=== PATIENT | male | born 1990 | race Caucasian/White ===

== ENCOUNTER 2018-10-03 22:52 | Inpatient (IN) | payer OTHER ==
[2018-10-04 01:14] LABS: Barbiturates Urine Screen None Detected (None Detect); Benzodiazepine Urine Screen None Detected (None Detect); Urine Cannabinoids Screen None Detected (None Detect)
--- NOTE | 2018-10-04 01:37 | ED ---
Psychiatric Complaint - HPI Summary HPI Summary: Patient is a 27-year-old male presenting to the ED with a CC of "weird thoughts and actions" over the last few days. He also states he has not slept any more than 3 hours in the past 2-3 days, however does not feel tired. Patient does endorse a depression history, but denies any anxiety. He states he had turned in a paper to his professor and the professor became concerned. The professor stated he may need to have someone to talk to. The patient states this was due to his anxiety over wrestling with trying to to his friends he did not like their ideas and must come out wrong on paper. He also is stating throughout the day he had "strange thoughts" and states he had fleeting thoughts of "Am I God?" He follows this with, "obviously I know I am not, and I am feeling much better after I am sitting here realizing all these thoughts are just strange and probably d/t lack of sleep." He states he exercises regularly and eats healthy. He is to be on ADD medications, but was able to get off these with diet and exercise. He denies any SI/HI. He denies any self-harm. - History Of Current Complaint Chief Complaint: EDMentalHealth Time Seen by Provider: 10/04/18 00:17 Hx Obtained From: Patient Onset/Duration: Sudden Onset Timing: Constant Severity Initially: Moderate Severity Currently: Moderate Character: Manic, Frustrated Aggravating Factor(s): Nothing Alleviating Factor(s): Nothing Associated Signs And Symptoms: Positive: Negative Related History: Positive For: Prior Psychiatric Issues - depression - Risk Factor(s) Completed Suicide Risk Factors: Male, White Armenian - Allergies/Home Medications Allergies/Adverse Reactions: Allergies Allergy/AdvReac Type Severity Reaction Status Date / Time No Known Allergies Allergy Verified 10/03/18 23:02 Home Medications: Home Medications Methylphenidate HCl [Methylphenidate ER] 27 mg PO DAILY 10/04/18 [History Confirmed 10/04/18] PMH/Surg Hx/FS Hx/Imm Hx Previously Healthy: Yes - Immunization History Hx Pertussis Vaccination: No Immunizations Up to Date: Yes Infectious Disease History: Yes Infectious Disease History: Denies: Traveled Outside the [place] in Last 30 Days - Social History 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, 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 Lives: Alone Alcohol Use: Occasionally Hx Substance Use: No Substance Use Type: Reports: None Hx Tobacco Use: No Smoking Status (MU): Never Smoked Tobacco Review of Systems Constitutional: Negative Negative: Fever, Chills, Fatigue, Skin Diaphoresis Negative: Palpitations, Chest Pain Negative: Shortness Of Breath, Cough Genitourinary: Negative Positive: no symptoms reported, see HPI Negative: Arthralgia, Myalgia Skin: Negative Positive: Other - insomnia All Other Systems Reviewed And Are Negative: Yes Physical Exam Triage Information Reviewed: Yes Vital Signs On Initial Exam: Initial Vitals Temp Pulse Resp BP Pulse Ox 98.5 F 92 16 145/89 98 10/03/18 22:54 10/03/18 22:54 10/03/18 22:54 10/03/18 22:54 10/03/18 22:54 Vital Signs Reviewed: Yes Appearance: Positive: Well-Appearing, Well-Nourished Skin: Positive: Skin Color Reflects Adequate Perfusion Head/Face: Positive: Normal Head/Face Inspection Eyes: Positive: EOMI, CARROLL, Conjunctiva Clear Neck: Positive: Nontender, No Lymphadenopathy Respiratory/Lung Sounds: Positive: Clear to Auscultation, Breath Sounds Present Cardiovascular: Positive: RRR, Pulses are Symmetrical in both Upper and Lower Extremities Musculoskeletal: Positive: Strength/ROM Intact Neurological: Positive: Sensory/Motor Intact, Alert, Oriented to Person Place, Time, Speech Normal Psychiatric: Positive: Affect/Mood Appropriate AVPU Assessment: Alert Diagnostics - Vital Signs Vital Signs Temp Pulse Resp BP Pulse Ox 10/03/18 22:54 98.5 F 92 16 145/89 98 - Laboratory Lab Results: Lab Results 10/04/18 Range/Units 00:15 Urine Opiates Screen None detected (None Detect) Ur Barbiturates Screen None detected (None Detect) Ur Phencyclidine Scrn None detected (None Detect) Ur Amphetamines Screen None detected (None Detect) U Benzodiazepines Scrn None detected (None Detect) Urine Cocaine Screen None detected (None Detect) U Cannabinoids Screen None detected (None Detect) Lab Statement: Any lab studies that have been ordered have been reviewed, and results considered in the medical decision making process. Course/Dx - Course Course Of Treatment: During the course treatment from the patient is evaluated for grossly disorganized thoughts as well as some social functioning issues, with no obvious hallucinations or delusions. There is no evidence of disorganized speech. No evidence of current depression, SI, HI or anxiety. However there appears to be a social dysfunction component at this time. He is cleared for MHU without labs obtained. He appears well and in good spirits. He is signed out to Dr. Paris at 2:30a pending mental health evalution. - Differential Dx/Clinical Impression Differential Diagnosis/HQI/PQRI: Positive: Anxiety, Bipolar Disorder, Schizophrenia, Other - insomnia Provider Diagnosis: Insomnia Discharge - Sign-Out/Discharge Documenting (check all that apply): Sign-Out Patient Signing out patient TO: Homa Paris - Discharge Plan Condition: Stable Referrals: No Primary Care Phys,NOPCP [Primary Care Provider] - - Billing Disposition and Condition Condition: STABLE
[2018-10-04] MEDS ORDERED: LORazepam TAB(*) 1 MG PO ONE (03:37)
--- NOTE | 2018-10-04 06:40 | ED ---
Progress - Progress Note Progress Note: This patient was signed out from EVELIA Triplett to Dr. Paris, pending dispo, awaiting MHE. MHE done at [address] Bhardwaj. The patient will be involuntarily admitted with dx of acute juani. - Consult/PCP Time Called: 00:00 Course/Dx - Course Course Of Treatment: During the course treatment from the patient is evaluated for grossly disorganized thoughts as well as some social functioning issues, with no obvious hallucinations or delusions. There is no evidence of disorganized speech. No evidence of current depression, SI, HI or anxiety. However there appears to be a social dysfunction component at this time. He is cleared for MHU without labs obtained. He appears well and in good spirits. He is signed out to Dr. Paris at 2:30a pending mental health evalution. - Diagnoses Provider Diagnoses: Juani Discharge - Sign-Out/Discharge Documenting (check all that apply): Patient Departure - admit All imaging exams completed and their final reports reviewed: No Studies - Discharge Plan Condition: Stable [place] [place] Disposition and Condition Condition: STABLE [place] [facility] [place] Attestation Statements Document Initiated by Scribe: Yes Documenting Scribe: Ollie Bobby Provider For Whom Randy is Documenting (Include Credential): Homa Paris MD Scribe Attestation: Ollie Carpenter, scribed for Homa Paris MD on 10/05/18 at 0624. Scribe Documentation Reviewed: Yes Provider Attestation: The documentation as recorded by the Ollie altamirano accurately reflects the service I personally performed and the decisions made by , Homa Paris MD Status of Scribe Document: Viewed
[2018-10-04] MEDS ORDERED: Acetaminophen TAB* 325 MG PO PRN (13:57)
[2018-10-04] MEDS ORDERED: Al Hydrox/Mg Hydrox/Simet LIQ* 30 ML UDC PO PRN (13:57)
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
[2018-10-05] MEDS: Vitamin THERAPEUTIC TAB PO SCH (08:33)
--- NOTE | 2018-10-05 11:45 | PN ---
MHU: Group Therapy Note - Service Type Service Type: [id number] Group Psychotherapy - Cognitive Behavioral Group Therapy ( CBT):Patient was attentive and participatory in CBT programming this morning, and remained in good behavioral control. Patient expressed positive insights regarding relevant treatment interventions and goals.
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
[2018-10-05] MEDS ORDERED: Divalproex ER TAB(*) 500 MG PO SCH (21:00)
[2018-10-06 08:19] LABS: HDL Cholesterol 79.3 mg/dL
[2018-10-06] MEDS: Vitamin THERAPEUTIC TAB PO SCH (11:25)
[2018-10-06] MEDS ORDERED: Divalproex DR TAB(*) 500 MG PO ONE (12:04)
[2018-10-06] MEDS: diPHENhydraMINE PO* 50 MG PO PRN (12:26)
--- NOTE | 2018-10-06 14:06 | PN ---
Subjective - Subjective Date of Service: 10/06/18 Service Type: [id number] [facility] care 15 min low complexity Subjective: Patient was seen by self, initial evaluation was reviewed, discussed with treatment team, chart was reviewed. Spoke with father after patient agreed to release information. Patient took his medications yesterday, no reported side effects to any medications. Patient still in manic phase gets easily distractable and is ambivalent about his treatment and medications. Patient continues to be disorganized with flight of ideas. Patient mood was anxious and euphoric with racing thoughts with minimal improvement. Patient has been reporting no suicidal or homicidal ideation. No psychotic symptoms of hallucinations but do have some paranoid ideation and grandiosity. Objective - Appearance Appearance: Healthy Appearing Dysmorphic Features: No Hygiene: Normal Grooming: Fairly Well Kept - Behavior Psychomotor Activities: Abnormal-Increased Exhibits Abnormal Movement: No - Attitude and Relatedness Attitude and Relatedness: Superficially Cooperative Eye Contact: Poor - Speech Quality: Pressured Latencies: Short Quantity: Copious - Mood Patient's Decription of Mood: "Fine" - Affect Observed Affect: Good Affect Consistent with: Euphoria - Thought Process Patient's Thought Process: Tangential, Filght of Ideas Thought Content: Yes Paranoid Ideation - asking staff to eat and test food before he eats, No Passive Wish, No Suicidal Planning, No Homicidal Ideation - Sensorium Experiencing Hallucinations: No, Sensorium is Clear Type of Hallucinations: Visual: No, Auditory: No, Command: No - Level of Consciousness Level of Consciousness: Alert Orientation: Yes Intact, Yes Orientated to Time, Yes Orientated to Place, Yes Orientated to Person - Impulse Control Impulse Control: Poor - Insight and Judgement Insight and Judgement: Poor - Medication Management Medication Management Adherence: Yes Assessment - Assessment Merits Inpatient Hospitalization: For Immediate Safety, For Stabilization, For Discharge Planning Inpatient DSM-V Dx: F31.2 Clinical Impression: 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 He was admitted on emergency status for treatment of manic-like symptoms. Medical history is unremarkable. He denies recent substance abuse. He is not aware of any family history of psychiatric illnesses or completed suicide. He described a pressure to meet deadline for exam as a precipitant for his current symptoms. He has remote history of mental health evaluation because of depressed mood and suicidal ideation in the context of a setback. [facility] [place]: Problem List - Patient Problems (1) Bipolar 1 disorder Current Visit: Yes Status: Acute Code(s): F31.9 - BIPOLAR DISORDER, UNSPECIFIED SNOMED Code(s): 870911197 Plan - Plan Treatment Plan: Name: MARGARET CARROLL Birthdate: 1990 [id number] - Patient continues to be hospitalized due to manic episode. - Patient's medications were discussed after multiple attempt of psychoeducation and patient informed consent. Patient was given one dose of Depakote 500 mg and his Depakote ER was increased to 750 mg PO QHS with plan to adjust as needed and tolerated. - Patient will be monitored for improvement and side effects. Risk and benefits were discussed. - Patient was encouraged to continue his participation in the milieu, group and individual therapy. Medications: Current Medications Acetaminophen (Tylenol Tab*) 650 mg PO Q4H PRN PRN Reason: PAIN or TEMP > 101 F Al Hydrox/Mg Hydrox/Simethicone (Maalox Plus*) 30 ml PO Q4H PRN PRN Reason: INDIGESTION Diphenhydramine HCl (Benadryl Po*) 50 mg PO Q6H PRN PRN Reason: anxiety/sleep Last Admin: 10/06/18 12:26 Dose: 50 mg Divalproex Sodium (Depakote Er Tab(*)) 750 mg PO BEDTIME [facility] Multivitamins (Theragran Tab*) 1 tab PO DAILY [place] Last Admin: 10/06/18 11:25 Dose: Not Given
[2018-10-06] MEDS ORDERED: Divalproex ER TAB(*) 250 MG PO SCH (21:00)
[2018-10-07] MEDS: Vitamin THERAPEUTIC TAB PO SCH (10:08)
--- NOTE | 2018-10-07 11:37 | PN ---
MHU: Group Therapy Note - Service Type Service Type: [id number] Group Psychotherapy - Cognitive Behavioral Group Therapy ( CBT):Patient presented in CBT programming as disorganized and disruptive in discussion and needed repeated redirection to attend to presented materials.
--- NOTE | 2018-10-07 12:19 | PN ---
Subjective - Subjective Date of Service: 10/07/18 Service Type: [id number] [facility] care 15 min low complexity Subjective: Patient was seen by self, discussed with treatment team, chart was reviewed. Patient has been reporting compliance with his medications, no reported side effects. Patient still in manic phase with limited improvement gets easily distractable and is ambivalent about his treatment and medications but agreed to medication adjustment. Patient continues to be disorganized with flight of ideas with some improvement than before. Patient mood was anxious and euphoric with racing thoughts with some improvement. Patient has been reporting no suicidal or homicidal ideation. No psychotic symptoms of hallucinations but some paranoid ideation and grandiosity. Objective - Appearance Appearance: Healthy Appearing Dysmorphic Features: No Hygiene: Normal Grooming: Fairly Well Kept - Behavior Psychomotor Activities: Abnormal-Increased Exhibits Abnormal Movement: No - Attitude and Relatedness Attitude and Relatedness: Superficially Cooperative Eye Contact: Poor - Speech Quality: Pressured - less Latencies: Short - improved than before Quantity: Copious - Mood Patient's Decription of Mood: "Great" - Affect Observed Affect: Euphoric Affect Consistent with: Euphoria - Thought Process Patient's Thought Process: Disorganized - less, Circumstantial Thought Content: Yes Paranoid Ideation - less, No Passive Wish, No Suicidal Planning, No Homicidal Ideation - Sensorium Experiencing Hallucinations: No, Sensorium is Clear Type of Hallucinations: Visual: No, Auditory: No, Command: No - Level of Consciousness Level of Consciousness: Alert Orientation: Yes Intact, Yes Orientated to Time, Yes Orientated to Place, Yes Orientated to Person - Impulse Control Impulse Control: Poor - Insight and Judgement Insight and Judgement: Poor - Group Participation Particating in Group Activities: Yes - Medication Management Medication Management Adherence: Yes Assessment - Assessment Merits Inpatient Hospitalization: For Immediate Safety, For Stabilization, For Discharge Planning Inpatient DSM-V Dx: F31.2 Clinical Impression: 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 He was admitted on emergency status for treatment of manic-like symptoms. Medical history is unremarkable. He denies recent substance abuse. He is not aware of any family history of psychiatric illnesses or completed suicide. He described a pressure to meet deadline for exam as a precipitant for his current symptoms. He has remote history of mental health evaluation because of depressed mood and suicidal ideation in the context of a setback. MHU: Problem List - Patient Problems (1) Bipolar 1 disorder Current Visit: Yes Status: Acute Code(s): F31.9 - BIPOLAR DISORDER, UNSPECIFIED SNOMED Code(s): 893030864 Plan - Plan Treatment Plan: Name: MARGARET CARROLL Birthdate: 1990 [id number] - Patient continues to be hospitalized due to manic episode. - Patient's medications were adjusted with increment in Depakote ER to 1250 mg QHS with plan to adjust as needed and tolerated. - Patient will be monitored for improvement and side effects. Risk and benefits were discussed. - Patient was encouraged to continue his participation in the milieu, group and individual therapy. Medications: Current Medications Acetaminophen (Tylenol Tab*) 650 mg PO Q4H PRN PRN Reason: PAIN or TEMP > 101 F Al Hydrox/Mg Hydrox/Simethicone (Maalox Plus*) 30 ml PO Q4H PRN PRN Reason: INDIGESTION Diphenhydramine HCl (Benadryl Po*) 50 mg PO Q6H PRN PRN Reason: anxiety/sleep Last Admin: 10/06/18 12:26 Dose: 50 mg Multivitamins (Theragran Tab*) 1 tab PO DAILY [place] Last Admin: 10/07/18 10:08 Dose: Not Given
[2018-10-07] MEDS ORDERED: Divalproex ER TAB(*) 250 MG PO SCH ×2 (21:00)
[2018-10-08] MEDS: Vitamin THERAPEUTIC TAB PO SCH (10:59)
--- NOTE | 2018-10-08 12:54 | PN ---
Subjective - Subjective Date of Service: 10/08/18 Service Type: [id number] [facility] care 15 min low complexity Subjective: Patient was seen by self, discussed with treatment team, chart was reviewed. Patient has been reporting compliance with his medications, no reported side effects. Patient with some improvement in manic phase and is cooperative with his medications. Patient continues to be disorganized with flight of ideas and paranoid thinking process. Patient mood was anxious and euphoric with less racing thoughts and limited improvement. Patient has been reporting no suicidal or homicidal ideation. No psychotic symptoms of hallucinations but continue to have paranoid ideation and grandiosity. Objective - Appearance Appearance: Healthy Appearing Dysmorphic Features: No Hygiene: Normal Grooming: Fairly Well Kept - Behavior Psychomotor Activities: Normal Exhibits Abnormal Movement: No - Attitude and Relatedness Attitude and Relatedness: Cooperative Eye Contact: Fair - Speech Quality: Unpressured Latencies: Normal Quantity: Copious - Mood Patient's Decription of Mood: "Good" - Affect Observed Affect: Labile Affect Consistent with: Euphoria - Thought Process Patient's Thought Process: Tangential, Circumstantial Thought Content: Yes Paranoid Ideation, No Passive Wish, No Suicidal Planning, No Homicidal Ideation - Sensorium Experiencing Hallucinations: No, Sensorium is Clear Type of Hallucinations: Visual: No, Auditory: No, Command: No - Level of Consciousness Level of Consciousness: Alert Orientation: Yes Intact, Yes Orientated to Time, Yes Orientated to Place, Yes Orientated to Person - Impulse Control Impulse Control: Poor - Insight and Judgement Insight and Judgement: Poor - Medication Management Medication Management Adherence: Yes Assessment - Assessment Merits Inpatient Hospitalization: For Immediate Safety, For Stabilization, For Discharge Planning Inpatient DSM-V Dx: F31.2 Clinical Impression: 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 He was admitted on emergency status for treatment of manic-like symptoms. Medical history is unremarkable. He denies recent substance abuse. He is not aware of any family history of psychiatric illnesses or completed suicide. He described a pressure to meet deadline for exam as a precipitant for his current symptoms. He has remote history of mental health evaluation because of depressed mood and suicidal ideation in the context of a setback. MHU: Problem List - Patient Problems (1) Bipolar 1 disorder Current Visit: Yes Status: Acute Code(s): F31.9 - BIPOLAR DISORDER, UNSPECIFIED SNOMED Code(s): 114752163 Plan - Plan Treatment Plan: Name: MARGARET CARROLL Birthdate: 1990 [id number] - Patient continues to be hospitalized due to manic episode. - Patient's medications were adjusted with increment in Depakote ER to 1500 mg QHS with plan to adjust as needed and tolerated. Patient was also started on Risperidone 0.5 mg PO BID to help with paranoid thinking process. - Patient will be monitored for improvement and side effects. Risk and benefits were discussed. - Patient was encouraged to continue his participation in the milieu, group and individual therapy. Medications: Current Medications Acetaminophen (Tylenol Tab*) 650 mg PO Q4H PRN PRN Reason: PAIN or TEMP > 101 F Al Hydrox/Mg Hydrox/Simethicone (Maalox Plus*) 30 ml PO Q4H PRN PRN Reason: INDIGESTION Diphenhydramine HCl (Benadryl Po*) 50 mg PO Q6H PRN PRN Reason: anxiety/sleep Last Admin: 10/06/18 12:26 Dose: 50 mg Divalproex Sodium (Depakote Er Tab(*)) 1,500 mg PO BEDTIME [place] Multivitamins (Theragran Tab*) 1 tab PO DAILY [place] Last Admin: 10/08/18 10:59 Dose: 1 tab Risperidone (Risperdal) 0.5 mg PO BID [place]
[2018-10-08] MEDS: Divalproex ER TAB(*) 500 MG PO SCH ×3 (22:18→23:54)
[2018-10-09] MEDS: diPHENhydraMINE PO* 50 MG PO PRN (01:53)
[2018-10-09] MEDS: Vitamin THERAPEUTIC TAB PO SCH (10:29)
[2018-10-09 11:45] LABS: Hematocrit 43 % (42-52); Hemoglobin 14.4 g/dl (14.0-18.0); Mean Corpuscular HGB Conc 33 g/dl (31-36); Mean Corpuscular Hemoglobin 30 pg (27-31); Mean Corpuscular Volume 90 fL (80-94); Mean Platelet Volume 10.6 fL (7.4-10.4); Platelet Count 130 10^3/ul (150-450); Red Blood Count 4.81 10^6/ul (4.00-5.40); Red Cell Distribution Width 13 % (10.5-15); White Blood Count 6.6 10^3/ul (3.5-10.8)
[2018-10-09 12:02] LABS: Albumin 4.1 g/dL (3.2-5.2); Albumin/Globulin Ratio 1.5 (1-3); BUN/Creatinine Ratio 11.8 (8-20); Calcium 9.5 mg/dL (8.6-10.3); EGFR Non-African American 80.3 (>60); Globulin 2.7 g/dL (2-4); Potassium 4.8 mmol/L (3.5-5.0); Total Bilirubin 0.6 mg/dL (0.2-1.0); Total Protein 6.8 g/dL (6.4-8.9)
--- NOTE | 2018-10-09 12:15 | PN ---
Subjective - Subjective Date of Service: 10/09/18 Service Type: [id number] [facility] care 15 min low complexity Subjective: Patient was seen by self, discussed with treatment team, chart was reviewed. Patient has been reporting compliance with his medications. Patient with continued manic phase and is cooperative with his medications. Patient reported akathisia like feeling with risperidone and agreed to switch it to Seroquel. Patient continues to be labile, disorganized with flight of ideas and paranoid thinking process. Patient mood was anxious and euphoric with less racing thoughts but limited improvement. Patient has been reporting no suicidal or homicidal ideation. No psychotic symptoms of hallucinations but continue to have paranoid ideation and grandiosity. Patient lab work is pending. Objective - Appearance Appearance: Healthy Appearing Dysmorphic Features: No Hygiene: Normal Grooming: Fairly Well Kept - Behavior Psychomotor Activities: Abnormal-Increased Exhibits Abnormal Movement: No - Attitude and Relatedness Attitude and Relatedness: Cooperative Eye Contact: Fair - Speech Quality: Pressured Latencies: Normal - Mood Patient's Decription of Mood: "Great" - Affect Observed Affect: Labile Affect Consistent with: Euphoria - Thought Process Patient's Thought Process: Filght of Ideas, Circumstantial Thought Content: Yes Paranoid Ideation - less , No Passive Wish, No Suicidal Planning, No Homicidal Ideation - Sensorium Experiencing Hallucinations: No, Sensorium is Clear Type of Hallucinations: Visual: No, Auditory: No, Command: No - Level of Consciousness Level of Consciousness: Alert Orientation: Yes Intact, Yes Orientated to Time, Yes Orientated to Place, Yes Orientated to Person - Impulse Control Impulse Control: Poor - Insight and Judgement Insight and Judgement: Poor - Group Participation Particating in Group Activities: Yes - Medication Management Medication Management Adherence: Yes Assessment - Assessment Merits Inpatient Hospitalization: For Immediate Safety, For Stabilization, For Discharge Planning Inpatient DSM-V Dx: F31.2 Clinical Impression: 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 He was admitted on emergency status for treatment of manic-like symptoms. Medical history is unremarkable. He denies recent substance abuse. He is not aware of any family history of psychiatric illnesses or completed suicide. He described a pressure to meet deadline for exam as a precipitant for his current symptoms. He has remote history of mental health evaluation because of depressed mood and suicidal ideation in the context of a setback. MHU: Problem List - Patient Problems (1) Bipolar 1 disorder Current Visit: Yes Status: Acute Code(s): F31.9 - BIPOLAR DISORDER, UNSPECIFIED SNOMED Code(s): 282949552 Plan - Plan Treatment Plan: Name: MARGARET CARROLL Birthdate: 1990 [id number] - Patient continues to be hospitalized due to manic episode. - Patient's medications were adjusted with increment in Depakote ER to 1500 mg QHS with plan to adjust as needed and tolerated.Pending valproic acid level. Patient Risperidone was discontinued and switched to Seroquel 100mg PO QHS to help with paranoid thinking process. - Patient will be monitored for improvement and side effects. Risk and benefits were discussed. - Patient was encouraged to continue his participation in the milieu, group and individual therapy. Medications: Current Medications Acetaminophen (Tylenol Tab*) 650 mg PO Q4H PRN PRN Reason: PAIN or TEMP > 101 F Al Hydrox/Mg Hydrox/Simethicone (Maalox Plus*) 30 ml PO Q4H PRN PRN Reason: INDIGESTION Diphenhydramine HCl (Benadryl Po*) 50 mg PO Q6H PRN PRN Reason: anxiety/sleep Last Admin: 10/09/18 01:53 Dose: 50 mg Divalproex Sodium (Depakote Er Tab(*)) 1,500 mg PO BEDTIME [place] Last Admin: 10/08/18 23:54 Dose: 1,500 mg Multivitamins (Theragran Tab*) 1 tab PO DAILY [place] Last Admin: 10/09/18 10:29 Dose: 1 tab Quetiapine Fumarate (Seroquel Tab*) 100 mg PO BEDTIME [place]
[2018-10-09 13:19] LABS: ABS Basophils 0.1 10^3/ul (0-0.2); ABS Eosinophils 0.2 10^3/ul (0-0.6); ABS Lymphocytes 2.6 10^3/ul (1.0-4.8); ABS Monocytes 0.6 10^3/ul (0-0.8); ABS Neutrophils 3.2 10^3/ul (1.5-7.7); ABS Nucleated RBC 0 10^3/ul; Eosinophil % 2.5 %; Lymphocyte % 38.7 %; Nucleated Red Blood Cells % 0.1
[2018-10-09] MEDS: QUEtiapine TAB* 100 MG PO SCH (21:27)
[2018-10-09] MEDS: Divalproex ER TAB(*) 500 MG PO SCH (21:32)
[2018-10-10] MEDS: Vitamin THERAPEUTIC TAB PO SCH (14:07)
[2018-10-10] MEDS: QUEtiapine TAB* 100 MG PO SCH (20:51)
[2018-10-11] MEDS: Divalproex ER TAB(*) 500 MG PO SCH ×3 (03:05→22:11)
[2018-10-11] MEDS: Vitamin THERAPEUTIC TAB PO SCH (11:29)
[2018-10-11] MEDS: QUEtiapine TAB* 100 MG PO SCH (22:10)
[2018-10-12] MEDS: Vitamin THERAPEUTIC TAB PO SCH (10:19)
--- NOTE | 2018-10-12 12:57 | PN ---
Subjective - Subjective Date of Service: 10/12/18 Service Type: [id number] [facility] care 15 min low complexity Subjective: Patient was seen by self, discussed with treatment team, chart was reviewed. Patient has been reporting compliance with his medications. Patient with less manic symptoms and less tangential and aware to stop himself when goes into tangents. Patient is cooperative with his medications. Patient sleeping is better with Seroquel. Patient continues is less labile, more organized with less flight of ideas and less paranoid thinking process and cooperative with staff. Patient has been reporting no suicidal or homicidal ideation. No psychotic symptoms of hallucinations. Patient was having ambivalent feelings about his treatment and medication and overt he weekend refuse to take his medications but re took it next day after multiple education attempt from parents and staff. Patient appreciate help at the hospital and wanting to continue with medications. Objective - Appearance Appearance: Healthy Appearing Dysmorphic Features: No Hygiene: Normal Grooming: Fairly Well Kept - Behavior Psychomotor Activities: Normal Exhibits Abnormal Movement: No - Attitude and Relatedness Attitude and Relatedness: Cooperative Eye Contact: Fair - Speech Quality: Unpressured Latencies: Normal Quantity: Copious - Mood Patient's Decription of Mood: "Good" - Affect Observed Affect: Labile - but less Affect Consistent with: Euphoria - less - Thought Process Patient's Thought Process: Tangential - less, Circumstantial Thought Content: Yes Paranoid Ideation - less, No Passive Wish, No Suicidal Planning, No Homicidal Ideation - Sensorium Experiencing Hallucinations: No, Sensorium is Clear Type of Hallucinations: Visual: No, Auditory: No, Command: No - Level of Consciousness Level of Consciousness: Alert Orientation: Yes Intact, Yes Orientated to Time, Yes Orientated to Place, Yes Orientated to Person - Impulse Control Impulse Control: Poor - but improving - Insight and Judgement Insight and Judgement: Poor - but improving - Group Participation Particating in Group Activities: Yes - Medication Management Medication Management Adherence: Yes Assessment - Assessment Merits Inpatient Hospitalization: For Immediate Safety, For Stabilization, For Discharge Planning Inpatient DSM-V Dx: F31.2 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 He was admitted on emergency status for treatment of manic-like symptoms. Medical history is unremarkable. He denies recent substance abuse. He is not aware of any family history of psychiatric illnesses or completed suicide. He described a pressure to meet deadline for exam as a precipitant for his current symptoms. He has remote history of mental health evaluation because of depressed mood and suicidal ideation in the context of a setback. MHU: Problem List - Patient Problems (1) Bipolar 1 disorder Current Visit: Yes Status: Acute Code(s): F31.9 - BIPOLAR DISORDER, UNSPECIFIED SNOMED Code(s): 696013046 Plan - Plan Treatment Plan: Name: MARGARET CARROLL Birthdate: 1990 [id number] - Patient continues to be hospitalized due to manic episode. - Patient's medications were continued with Depakote ER [id number] mg QHS with plan to adjust as needed and tolerated. Patient to continue with Seroquel 100mg PO QHS to help with paranoid thinking process and aide mood stabilization. - Patient will be monitored for improvement and side effects. Risk and benefits were discussed. - Patient was encouraged to continue his participation in the milieu, group and individual therapy. Medications: Current Medications Acetaminophen (Tylenol Tab*) 650 mg PO Q4H PRN PRN Reason: PAIN or TEMP > 101 F Al Hydrox/Mg Hydrox/Simethicone (Maalox Plus*) 30 ml PO Q4H PRN PRN Reason: INDIGESTION Diphenhydramine HCl (Benadryl Po*) 50 mg PO Q6H PRN PRN Reason: anxiety/sleep Last Admin: 10/09/18 01:53 Dose: 50 mg Divalproex Sodium (Depakote Er Tab(*)) 1,500 mg PO BEDTIME [place] Last Admin: 10/11/18 22:11 Dose: Not Given Multivitamins (Theragran Tab*) 1 tab PO DAILY [place] Last Admin: 10/12/18 10:19 Dose: 1 tab Quetiapine Fumarate (Seroquel Tab*) 100 mg PO BEDTIME [place] Last Admin: 10/11/18 22:10 Dose: 100 mg
[2018-10-12] MEDS: Divalproex ER TAB(*) 500 MG PO SCH (20:42)
[2018-10-12] MEDS: QUEtiapine TAB* 100 MG PO SCH ×2 (20:43→21:19)
[2018-10-13] MEDS: Vitamin THERAPEUTIC TAB PO SCH (10:48)
--- NOTE | 2018-10-13 11:48 | PN ---
Subjective - Subjective Date of Service: 10/13/18 Service Type: [id number] [facility] care 15 min low complexity Subjective: Patient was seen by self, discussed with treatment team, chart was reviewed. Patient has been reporting compliance with his medications. Patient with further improvement in manic symptoms and more circumstantial compare to complete tangential speech. Patient is cooperative with his medications. Patient sleeping is better with Seroquel. Patient is less labile, more organized and no paranoid thinking process and cooperative with staff. Patient has been reporting no suicidal or homicidal ideation. No psychotic symptoms of hallucinations. Patient was having less ambivalent feelings about his treatment and medication st the hospital but still laughing about his need to follow up with a partial hospitalization. Patient appreciate help at the hospital and wanting to continue with medications and avoid stimulant on discharge. Objective - Appearance Appearance: Healthy Appearing Dysmorphic Features: No Hygiene: Mal-odorous - Behavior Psychomotor Activities: Normal - Attitude and Relatedness Attitude and Relatedness: Superficially Cooperative Eye Contact: Fair - Speech Quality: Unpressured Latencies: Normal Quantity: Copious - Mood Patient's Decription of Mood: "Okay" - Affect Observed Affect: Labile - less - Thought Process Patient's Thought Process: Coherent, Tangential - less than before, Circumstantial Thought Content: No Passive Wish, No Suicidal Planning, No Homicidal Ideation, No Paranoid Ideation - Sensorium Experiencing Hallucinations: No, Sensorium is Clear Type of Hallucinations: Visual: No, Auditory: No, Command: No - Level of Consciousness Level of Consciousness: Alert Orientation: Yes Intact, Yes Orientated to Time, Yes Orientated to Place, Yes Orientated to Person - Impulse Control Impulse Control: Poor - but improving - Insight and Judgement Insight and Judgement: Poor - but improving - Group Participation Particating in Group Activities: Yes - Medication Management Medication Management Adherence: Yes Assessment - Assessment Merits Inpatient Hospitalization: For Immediate Safety, For Stabilization, For Discharge Planning Inpatient DSM-V Dx: F31.2 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 He was admitted on emergency status for treatment of manic-like symptoms. Medical history is unremarkable. He denies recent substance abuse. He is not aware of any family history of psychiatric illnesses or completed suicide. He described a pressure to meet deadline for exam as a precipitant for his current symptoms. He has remote history of mental health evaluation because of depressed mood and suicidal ideation in the context of a setback. MHU: Problem List - Patient Problems (1) Bipolar 1 disorder Current Visit: Yes Status: Acute Code(s): F31.9 - BIPOLAR DISORDER, UNSPECIFIED SNOMED Code(s): 506083055 Plan - Plan Treatment Plan: Name: MARGARET CARROLL Birthdate: 1990 [id number] - Patient continues to be hospitalized due to manic episode and recommended to follow up with partial hospitalization. - Patient's medications were continued with Depakote ER [id number] mg QHS with plan to adjust as needed and tolerated. Patient to continue with Seroquel 100mg PO QHS to help with paranoid thinking process and aide mood stabilization. - Patient will be monitored for improvement and side effects. Risk and benefits were discussed. - Patient was encouraged to continue his participation in the milieu, group and individual therapy. Medications: Current Medications Acetaminophen (Tylenol Tab*) 650 mg PO Q4H PRN PRN Reason: PAIN or TEMP > 101 F Al Hydrox/Mg Hydrox/Simethicone (Maalox Plus*) 30 ml PO Q4H PRN PRN Reason: INDIGESTION Diphenhydramine HCl (Benadryl Po*) 50 mg PO Q6H PRN PRN Reason: anxiety/sleep Last Admin: 10/09/18 01:53 Dose: 50 mg Divalproex Sodium (Depakote Er Tab(*)) 1,500 mg PO BEDTIME [place] Last Admin: 10/12/18 20:42 Dose: 1,500 mg Multivitamins (Theragran Tab*) 1 tab PO DAILY [place] Last Admin: 10/13/18 10:48 Dose: 1 tab Quetiapine Fumarate (Seroquel Tab*) 100 mg PO BEDTIME [place] Last Admin: 10/12/18 21:19 Dose: 100 mg
[2018-10-13] MEDS: Divalproex ER TAB(*) 500 MG PO SCH (21:46)
[2018-10-13] MEDS: QUEtiapine TAB* 100 MG PO SCH (21:48)
[2018-10-14] MEDS: Vitamin THERAPEUTIC TAB PO SCH (08:37)
--- NOTE | 2018-10-14 13:03 | PN ---
Subjective - Subjective Date of Service: 10/14/18 Service Type: 49001 Hosp care 15 min low complexity Subjective: Patient was seen by self, discussed with treatment team, chart was reviewed. Patient has been reporting compliance with his medications. Patient with further gradual but progressive improvement in manic symptoms and less circumstantial and less tangential speech. Patient is cooperative with his medications. Patient sleeping is better with Seroquel. Patient is less labile, still laughs inappropriately, more organized and no paranoid thinking process and cooperative with staff. Patient has been reporting no suicidal or homicidal ideation. No psychotic symptoms of hallucinations. Patient was having less ambivalent feelings about his treatment and medication and still thinking about recommendation to follow up with partial hospitalization. As patient was focused on traveling to [place] to visit his girl friend on a trip. Objective - Appearance Appearance: Healthy Appearing Dysmorphic Features: No Hygiene: Normal Grooming: Fairly Well Kept - Behavior Psychomotor Activities: Normal Exhibits Abnormal Movement: No - Attitude and Relatedness Attitude and Relatedness: Cooperative Eye Contact: Fair - Speech Quality: Unpressured Latencies: Normal Quantity: Copious - Mood Patient's Decription of Mood: "Okay" - Affect Observed Affect: Labile - less Affect Consistent with: Euthymia - with some lability - Thought Process Patient's Thought Process: Tangential - less, Circumstantial Thought Content: No Passive Wish, No Suicidal Planning, No Homicidal Ideation, No Paranoid Ideation - Sensorium Experiencing Hallucinations: No, Sensorium is Clear Type of Hallucinations: Visual: No, Auditory: No, Command: No - Level of Consciousness Level of Consciousness: Alert Orientation: Yes Intact, Yes Orientated to Time, Yes Orientated to Place, Yes Orientated to Person - Impulse Control Impulse Control: Poor - but improvng - Insight and Judgement Insight and Judgement: Poor - but improving - Group Participation Particating in Group Activities: Yes - Medication Management Medication Management Adherence: Yes Assessment - Assessment Merits Inpatient Hospitalization: For Immediate Safety, For Stabilization, For Discharge Planning Inpatient DSM-V Dx: F31.2 Clinical Impression: 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 He was admitted on emergency status for treatment of manic-like symptoms. Medical history is unremarkable. He denies recent substance abuse. He is not aware of any family history of psychiatric illnesses or completed suicide. He described a pressure to meet deadline for exam as a precipitant for his current symptoms. He has remote history of mental health evaluation because of depressed mood and suicidal ideation in the context of a setback. MHU: Problem List - Patient Problems (1) Bipolar 1 disorder Current Visit: Yes Status: Acute Code(s): F31.9 - BIPOLAR DISORDER, UNSPECIFIED SNOMED Code(s): 664733082 Plan - Plan Treatment Plan: Name: MARGARET CARROLL Birthdate: 1990 [id number] - Patient continues to be hospitalized due to manic episode and recommended to follow up with partial hospitalization. - Patient's medications were continued with Depakote ER [id number] mg QHS with plan to adjust as needed and tolerated. Patient to continue with Seroquel 100mg PO QHS to help with sleep, paranoid thinking process and aide mood stabilization. - Patient will be monitored for improvement and side effects. Risk and benefits were discussed. - Patient was encouraged to continue his participation in the milieu, group and individual therapy. Medications: Current Medications Acetaminophen (Tylenol Tab*) 650 mg PO Q4H PRN PRN Reason: PAIN or TEMP > 101 F Al Hydrox/Mg Hydrox/Simethicone (Maalox Plus*) 30 ml PO Q4H PRN PRN Reason: INDIGESTION Diphenhydramine HCl (Benadryl Po*) 50 mg PO Q6H PRN PRN Reason: anxiety/sleep Last Admin: 10/09/18 01:53 Dose: 50 mg Divalproex Sodium (Depakote Er Tab(*)) 1,500 mg PO BEDTIME [facility] Last Admin: 10/13/18 21:46 Dose: 1,500 mg Multivitamins (Theragran Tab*) 1 tab PO DAILY [facility] Last Admin: 10/14/18 08:37 Dose: Not Given Quetiapine Fumarate (Seroquel Tab*) 100 mg PO BEDTIME [facility] Last Admin: 10/13/18 21:48 Dose: 100 mg
--- NOTE | 2018-10-14 16:39 | PN ---
MHU: Group Therapy Note - Service Type Service Type: [id number] Group Psychotherapy - Medication Education Group: Patient joined group late and was intermittently in room. Patient asked questions that were not particularly on topic. Patient receptive to redirection when monopolizing group.
[2018-10-14] MEDS: Divalproex ER TAB(*) 500 MG PO SCH (20:53)
[2018-10-14] MEDS: QUEtiapine TAB* 100 MG PO SCH (22:00)
[2018-10-15] MEDS: Vitamin THERAPEUTIC TAB PO SCH (10:09)
--- NOTE | 2018-10-15 12:22 | PN ---
Subjective - Subjective Date of Service: 10/15/18 Service Type: [id number] Hosp care 15 min low complexity Subjective: Patient was seen by self, discussed with treatment team, chart was reviewed. Patient has been reporting compliance with his medications. Patient with further gradual and progressive improvement in manic symptoms and less circumstantial and less tangential speech. Patient has been cooperative with his medications and is willing to take it on his discharge and planning to follow up outpatient. Patient sleeping is better with Seroquel. Patient is less labile, less inappropriate laughs, more organized and less tangential and no paranoid thinking process and cooperative with staff. Patient has been reporting no suicidal or homicidal ideation. No psychotic symptoms of hallucinations. Patient is willing to follow up outpatient at [facility] and planning to stay with family in [place] and recommended to follow up with partial hospitalization at [facility] which he will think about. Patient was requesting for privileges including comfort room, and computer access. Objective - Appearance Appearance: Healthy Appearing Dysmorphic Features: No Hygiene: Normal Grooming: Fairly Well Kept - Behavior Psychomotor Activities: Normal Exhibits Abnormal Movement: No - Attitude and Relatedness Attitude and Relatedness: Cooperative Eye Contact: Fair - Speech Quality: Unpressured Latencies: Normal Quantity: Copious - but less - Mood Patient's Decription of Mood: "Fine" - Affect Observed Affect: Labile - less Affect Consistent with: Euthymia - Thought Process Patient's Thought Process: Coherent, Tangential - less, Circumstantial Thought Content: No Passive Wish, No Suicidal Planning, No Homicidal Ideation, No Paranoid Ideation - Sensorium Experiencing Hallucinations: No, Sensorium is Clear Type of Hallucinations: Visual: No, Auditory: No, Command: No - Level of Consciousness Level of Consciousness: Alert Orientation: Yes Intact, Yes Orientated to Time, Yes Orientated to Place, Yes Orientated to Person - Impulse Control Impulse Control: Poor - but improving - Insight and Judgement Insight and Judgement: Fair - Group Participation Particating in Group Activities: Yes - Medication Management Medication Management Adherence: Yes Assessment - Assessment Merits Inpatient Hospitalization: For Immediate Safety, For Stabilization, For Discharge Planning Inpatient DSM-V Dx: F31.2 Clinical Impression: 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 He was admitted on emergency status for treatment of manic-like symptoms. Medical history is unremarkable. He denies recent substance abuse. He is not aware of any family history of psychiatric illnesses or completed suicide. He described a pressure to meet deadline for exam as a precipitant for his current symptoms. He has remote history of mental health evaluation because of depressed mood and suicidal ideation in the context of a setback. MHU: Problem List - Patient Problems (1) Bipolar 1 disorder Current Visit: Yes Status: Acute Code(s): F31.9 - BIPOLAR DISORDER, UNSPECIFIED SNOMED Code(s): 405318870 Plan - Plan Treatment Plan: Name: MARGARET CARROLL Birthdate: 1990 [id number] - Patient continues to be hospitalized due to manic episode and recommended to follow up [facility] and with partial hospitalization. - Patient's medications were continued with Depakote ER [id number] mg QHS with plan to adjust as needed and tolerated. Patient to continue with Seroquel 100mg PO QHS to help with sleep, paranoid thinking process and aide mood stabilization. - Patient was discussed with staff and provided computer privileges and comfort room access. - Patient will be monitored for improvement and side effects. Risk and benefits were discussed. - Patient was encouraged to continue his participation in the milieu, group and individual therapy. Medications: Current Medications Acetaminophen (Tylenol Tab*) 650 mg PO Q4H PRN PRN Reason: PAIN or TEMP > 101 F Al Hydrox/Mg Hydrox/Simethicone (Maalox Plus*) 30 ml PO Q4H PRN PRN Reason: INDIGESTION Diphenhydramine HCl (Benadryl Po*) 50 mg PO Q6H PRN PRN Reason: anxiety/sleep Last Admin: 10/09/18 01:53 Dose: 50 mg Divalproex Sodium (Depakote Er Tab(*)) 1,500 mg PO BEDTIME [facility] Last Admin: 10/14/18 20:53 Dose: 1,500 mg Multivitamins (Theragran Tab*) 1 tab PO DAILY [facility] Last Admin: 10/15/18 10:09 Dose: 1 tab Quetiapine Fumarate (Seroquel Tab*) 100 mg PO BEDTIME [facility] Last Admin: 10/14/18 22:00 Dose: 100 mg
[2018-10-15] MEDS: Divalproex ER TAB(*) 500 MG PO SCH (21:01)
[2018-10-15] MEDS: QUEtiapine TAB* 100 MG PO SCH (21:58)
[2018-10-16 08:28] VITALS: BP 133/84
[2018-10-16] MEDS: Vitamin THERAPEUTIC TAB PO SCH (09:30)
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
== END 2018-10-16 13:15 | disposition home or self-care (01) | DRG 885 ==
LOC: ED 22:52 → BSU 10-04 05:36
PROVIDERS: ADMIT Psychiatry & Neurology Psychiatry; ATTEND Psychiatry & Neurology Psychiatry
PROC: GZHZZZZ Group Psychotherapy (ICD-10-PCS; principal; 2018-10-05)
DX: F31.2 Bipolar disorder, current episode manic severe with psychotic features (principal); J45.909 Unspecified asthma, uncomplicated; F90.0 Attention-deficit hyperactivity disorder, predominantly inattentive type; Z62.819 Personal history of unspecified abuse in childhood; Z72.89 Other problems related to lifestyle
CPT/HCPCS: 36415; 80053; 80061; 80164; 80307; 83036; 85025; 90853; 99222; 99231; 99232; 99238; 99284; A9270-GY

== ENCOUNTER 2019-05-30 00:04 | Inpatient (IN) | payer OTHER ==
--- NOTE | 2019-05-30 00:38 | ED ---
Psychiatric Complaint - HPI Summary HPI Summary: This patient is a 28 year old M brought to ED via [facility] with a chief complaint of MHE since 0000 this night. Last weekend, patient went to a [employer] event in [place], [place]. He took LSD there. Patient reports sending emails to his advisor and father to test if he is schizophrenic, admitting that he took LSD via the emails. Patients father drove up to [place] this night from [place]. Tonight , patient was arguing verbally with his father because he did not want his father to be in [place]. Patient states police were called twice on him. He thinks either his father, his roommate, or his PhD advisor called the police. Patient denies saying he would kill his dad. The patient rates the pain 0/10 in severity. Symptoms aggravated by nothing. Symptoms alleviated by nothing. Patient denies fever. Patient was here a few months ago and was diagnosed with bipolar disorder. However, today, patient does not think he is having delusions , rapid speech, or sleep disturbances. - History Of Current Complaint Chief Complaint: EDMentalHealth Time Seen by Provider: 05/30/19 00:27 Hx Obtained From: Patient Onset/Duration: Lasting Weeks - After attending burning man last week, Still Present Timing: Constant Aggravating Factor(s): Nothing Alleviating Factor(s): Nothing Associated Signs And Symptoms: Positive: Negative - Fever Related History: Positive For: Prior Psychiatric Issues - Bipolar disorder Recent Stressor(s): Argument with father - Allergies/Home Medications Allergies/Adverse Reactions: Allergies Allergy/AdvReac Type Severity Reaction Status Date / Time No Known Allergies Allergy Verified 05/30/19 00:46 PMH/Surg Hx/FS Hx/Imm Hx Respiratory History: Reports: Hx Asthma Sensory History: Reports: Hx Contacts or Glasses Denies: Hx Hearing Aid Opthamlomology History: Reports: Hx Contacts or Glasses Psychiatric History: Reports: Hx Community Mental Health Tx, Hx Bipolar Disorder Denies: Hx Eating Disorder, Hx of Violent Episodes Against Others - Surgical History Surgery Procedure, Year, and Place: knee surgery Infectious Disease History: Yes Infectious Disease History: Denies: Traveled Outside the [place] in Last 30 Days - Family History Known Family History: Positive: Non-Contributory - Social History Alcohol Use: Occasionally Hx Substance Use: Yes Substance Use Type: Reports: Other - LSD Hx Tobacco Use: No Smoking Status (MU): Never Smoked Tobacco Review of Systems Negative: Fever Psychological: Other - Ericka All Other Systems Reviewed And Are Negative: Yes Physical Exam - Summary Physical Exam Summary: Appearance: Well-appearing, Well-nourished, lying in bed comfortable Skin: Warm, dry, no obvious rash Eyes: sclera anicteric, no conjunctival pallor ENT: mucous membranes moist Neck: deferred Respiratory: No signs of respiratory distress Cardiovascular: Appears well perfused, pulses are nml Abdomen: deferred Musculoskeletal: Moving all 4 extremities without obvious discomfort Neurological: Awake and alert, mentation is normal, speech is fluent and appropriate Psychiatric: Does not appear to be suffering from delusions or hallucinations, speech is somewhat pressured but he is able to modulate it, there is some mild tangential speech, but he is able to curtail it and come back to the point Triage Information Reviewed: Yes Vital Signs On Initial Exam: Initial Vitals Temp Pulse Resp BP Pulse Ox 100.3 F 99 18 157/105 98 05/30/19 00:11 05/30/19 00:11 05/30/19 00:11 05/30/19 00:11 05/30/19 00:11 Vital Signs Reviewed: Yes Diagnostics - Vital Signs Vital Signs Temp Pulse Resp BP Pulse Ox 05/30/19 00:11 100.3 F 99 18 157/105 98 - Laboratory Result Diagrams: 05/30/19 11:10 05/30/19 11:10 Lab Statement: Any lab studies that have been ordered have been reviewed, and results considered in the medical decision making process. Course/Dx - Course Course Of Treatment: This patient is a 28 year old M brought to ED via [facility] with a chief complaint of MHE since 0000 this night following an argument with his father. Patient is medically cleared for MHE at 0038. In the ED course, patient received Depakote and Seroquel. Patient will be signed out to Dr. Zhen Vaz from Dr. Zhen Nleson at 0700 on 05/30/19 at shift change pending MHE and disposition. - Differential Dx/Clinical Impression Provider Diagnosis: Bipolar disorder Discharge - Sign-Out/Discharge Documenting (check all that apply): Sign-Out Patient Signing out patient TO: Zhen Vaz Patient Received Moderate/Deep Sedation with Procedure: No - Discharge Plan Condition: Stable [place] [place] Disposition and Condition Condition: STABLE Disposition: Psychiatric Facility [facility] - Attestation Statements Document Initiated by Myrnaibe: Yes Documenting Scribe: Aayush Verdugo Provider For Whom Randy is Documenting (Include Credential): Zhen Nelson MD Scribe Attestation: I, Aayush Verdugo, scribed for Zhen Nelson MD on 05/31/19 at 0533. Scribe Documentation Reviewed: Yes Provider Attestation: The documentation as recorded by the Aayush altamirano accurately reflects the service I personally performed and the decisions made by me, Zhen Nelson MD Status of Scribe Document: Viewed
[2019-05-30] MEDS ORDERED: QUEtiapine TAB* 100 MG PO ONE (03:41)
[2019-05-30] MEDS ORDERED: Divalproex ER TAB(*) 500 MG PO ONE (03:41)
--- NOTE | 2019-05-30 07:12 | ED ---
Progress - Progress Note Progress Note: Pt is a signout from Dr. Nelson at 0700 on 05/30/19 pending MHE. - Consult/PCP Time Called: 00:48 Re-Evaluation - Re-Evaluation 1st re-eval Re-Evaluation Time: 10:55 Change: Unchanged Comment: Pt will be involuntarily admitted to the BSU under Dr. Hess with dx of Bipolar disorder. Course/Dx - Course Course Of Treatment: Pt is a signout from Dr. Nelson at 0700 on 05/30/19 pending MHE. - Diagnoses Provider Diagnoses: Bipolar disorder Discharge - Sign-Out/Discharge Documenting (check all that apply): Patient Departure, Receiving Sign-Out Receiving patient FROM: Zhen Nelson - Discharge Plan Condition: Stable Disposition: [place]CHIATRIC FAC[place] [place] - Billing Disposition and Condition Condition: STABLE Disposition: Psychiatric Facility [facility] [place] - Attestation Statements Document Initiated by Scribe: Yes Documenting Scribe: Kadi Mejia Provider For Whom Myrnaibwilliams is Documenting (Include Credential): Zhen Vaz MD. Scribe Attestation: Kadi Carpenter scribed for Zhen Vaz MD. on 05/31/19 at 0536. Scribe Documentation Reviewed: Yes Provider Attestation: The documentation as recorded by the Kadi altamirano accurately reflects the service I personally performed and the decisions made by Zhen stratton MD. Status of Scribe Document: Viewed
[2019-05-30 11:19] LABS: Hematocrit 44 % (42-52); Hemoglobin 14.9 g/dL (14.0-18.0); Mean Corpuscular HGB Conc 34 g/dL (31-36); Mean Corpuscular Hemoglobin 31 pg (27-31); Mean Corpuscular Volume 90 fL (80-94); Mean Platelet Volume 11.1 fL (7.4-10.4); Platelet Count 145 10^3/uL (150-450); Red Blood Count 4.89 10^6 /uL (4.18-5.48); Red Cell Distribution Width 13 % (10-15); White Blood Count 6.9 10^3/uL (3.5-10.8)
[2019-05-30 11:37] LABS: ALT 16 U/L (7-52); AST 22 U/L (13-39); Albumin 4.6 g/dL (3.2-5.2); Albumin/Globulin Ratio 1.5 (1-3); Alkaline Phosphatase 60 U/L (34-104); Anion Gap 7 mmol/L (2-11); BUN/Creatinine Ratio 14.3 (8-20); Blood Urea Nitrogen 18 mg/dL (6-24); CO2 Carbon Dioxide 26 mmol/L (22-32); Calcium 10.2 mg/dL (8.6-10.3); Chloride 106 mmol/L (101-111); EGFR African American 82.5 (>60); EGFR Non-African American 68.1 (>60); Globulin 3.1 g/dL (2-4); Glucose 74 mg/dL (70-100); Sodium 139 mmol/L (135-145); Total Protein 7.7 g/dL (6.4-8.9)
[2019-05-30 12:03] LABS: ABS Basophils 0.1 10^3/ul (0-0.2); ABS Eosinophils 0.1 10^3/ul (0-0.6); ABS Lymphocytes 2.4 10^3/ul (1.0-4.8); ABS Monocytes 0.7 10^3/ul (0-0.8); ABS Neutrophils 3.5 10^3/ul (1.5-7.7); Eosinophil % 1.7 %; Large Platelets Present; Lymphocyte % 35.4 %; Nucleated Red Blood Cells % 0.1
[2019-05-30 12:14] LABS: Acetaminophen < 15 mcg/mL; Alcohol < 10 mg/dL (<10); Salicylate < 2.50 mg/dL (<30)
[2019-05-30 12:30] LABS: TSH (Thyroid Stimulating Horm) 2.77 mcIU/mL (0.34-5.60)
[2019-05-30] MEDS ORDERED: Al Hydrox/Mg Hydrox/Simet LIQ* 30 ML UDC PO PRN (13:05)
[2019-05-30] MEDS ORDERED: Acetaminophen TAB* 325 MG PO PRN (13:05)
--- NOTE | 2019-05-30 18:55 | HP ---
H&P (Free Text) History and Physical: ID James Sheridan is a 28-year-old single polyamorous man Chief complaint The police were called on me twice on Sat. 2018 because "people were worried I was a danger to either myself or others." HPI James reports a history of juani and bipolar disorder. Recalls juani with psychosis leading to previous admission here last September, including belief he was God. He reports recently having taken LSD and attending [place] in [place], [place]. This was followed by sending emails speculating about his intelligence, whether or not he may be schizophrenic, and rebellious commentaries on social psychology. Denies any voices, visions, paranoia or delusions. Mood reported as Im comfortable with my mood. Denies grandiosity but feels good about himself. Denies any intent or plan to harm himself or others in any way. Sleep has been a little irregular since LSD + [place]ing [employer] a week ago. Reports people in his life are worried about him. Denies low mood and shows no signs of it, and does not see himself as euphoric or irritable, though he is bubbly. Denies ever binging, purging or restricting. Denies any history of trauma. Past psychiatric history - Single admission in September 2018 for manic episode . Currently in care with psychiatrist Dr Du in [facility], and seeing therapist Arash Juan at [facility]. Medications- Acetaminophen (Tylenol Tab*) 650 mg PO Q4H PRN PRN Reason: PAIN or TEMP > 101 F Al Hydrox/Mg Hydrox/Simethicone (Maalox Plus*) 30 ml PO Q4H PRN PRN Reason: INDIGESTION Divalproex Sodium (Depakote Er Tab(*)) 1,500 mg PO BEDTIME [facility] Multivitamins (Theragran Tab*) 1 tab PO DAILY [facility] Quetiapine Fumarate (Seroquel Tab*) 100 mg PO BEDTIME [facility] 2 Allergies Allergy/AdvReac Type Severity Reaction Status Date / Time No Known Allergies Allergy Verified 05/30/19 00:46 PE and ROS James declines a repeat PE. He reports having no current physical symptoms. Vital Signs (72 hours) 05/30/19 05/30/19 05/30/19 00:11 09:00 12:08 Temperature 100.3 F 98 F 98.5 F Pulse Rate 99 88 92 Respiratory 18 16 18 Rate Blood Pressure 157/105 141/88 132/83 (mmHg) O2 Sat by Pulse 98 100 98 Oximetry 05/30/19 05/30/19 05/30/19 12:29 12:48 13:39 Temperature 98.6 F 98.6 F Pulse Rate 95 95 Respiratory 16 16 18 Rate Blood Pressure 133/91 133/91 (mmHg) O2 Sat by Pulse 97 97 Oximetry Substance abuse history Denies any abuse of alcohol, marijuana, cocaine, heroin or pain pills, methamphetamine, tobacco. Has taken LSD twice. Past medical history Knee surgery years ago. PCP [facility] Family psychiatric history Has heard of a suicide in extended family, and one distantly related family member with either schizophrenia or bipolar disorder. Social history - Born in [place], [place]. No developmental delays or complications. Moved around a lot when in elementary school, then settled down in middle school. Only unpleasant memory is patients shouting at each other. 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 Parents and friends are most important people in his life. Identifies as heterosexual. Mental Status Examination - Good grooming/hygiene. Motor and speech pattern WNL with high energy. Mood relieved, calm. Affect bubbly. Denies AH/VH/PI/SI /HI. Good insight and judgment now, poor leading up to admission. Intact impulse control now. Impression Mr Sheridan has been admitted for safety, assessment and treatment after concerns raised by emails sent out indicative of a thought process that could lead to further escalation into a dangerous manic state. His father had stated that he had threatened to kill him, adding concerns for safety of others in our initial assessment leading to the determination that James required admission. James reports the only thing he had said to his father was to get out of his house and did not threaten his father in any way. James may have had a persistent change of mental status due to LSD and the stimulation of [place] contributing to his recurrence of juani. 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 He would also like to attend a conference in [place] to which he has an airline ticket to fly to on Friday. Diagnoses - Bipolar disorder, type 1, MRE manic. ADHD, predominantly inattentive type. Plan Admit to the BSU for safety, assessment and treatment. Gather collateral and coordinate aftercare with family, outpatient providers. Encourage groups and engagement in milieu. I have counseled James that I recommend abstinence from hallucinogens. I have reassured him that I think it unlikely that anyone would inform his fellowship agencies of this episode, and that even if someone had, it would be possible to address any concerns raised thereby, as having a manic episode is a medical condition for which he ought to be granted reasonable accomodations.
[2019-05-30] MEDS ORDERED: QUEtiapine TAB* 100 MG PO SCH (21:00)
[2019-05-30] MEDS: Divalproex ER TAB(*) 500 MG PO SCH ×2 (22:09→22:34)
--- NOTE | 2019-05-31 10:36 | PN ---
Subjective - Subjective Date of Service: 05/31/19 Service Type: 02206 Hosp care 35 min high complexity Subjective: Nursing Report: Patient was visible on unit, no behavioral incidents. He is attending group activities. CC: "I took LSD" Patient was seen and evaluated in the common room. The patient reported he sent a email to multiple people of a picture displaying a handfuls of pills and the [place] police brought him to the hospital. He reported that his sleep has been different lately and he stayed up Friday night. He spoke of going to [place] with his roommate last weekend and did LSD. He reported having adequate appetite The patient reports attending and participating in day groups. Per nursing no behavioral issues or overnight events reported. Patient reported that he is tolerating medications without side effects. Objective - General Observations Appearance: Neat Appears Stated Age: Yes Stature: Thin Posture: Tense Eye Contact: Intense Behavior/Activity: Accelerated - Interaction Observations Attitude Towards Examiner: Cooperative Stated Mood: Elevated Affect: Bright Speech Pattern/Tone: Pressured Thought Process: Filght of Ideas Perception: WNL Thought Content: Preoccupation/Ruminations Hallucination Type: Denies Delusion Type: Control - Cognitive Function Orientation: A&O x 4 Level of Consciousness: Awake Judgment Within Normal Limits: No - Medication Compliance Cooperative with Inpatient Medication Regimen: Yes - Group Participation Participates in Group Activities: Yes Assessment - Assessment Merits Inpatient Hospitalization: For Immediate Safety Clinical Impression: 28 year old male with history of Bipolar 1 disorder came to the hospital with features of juani and was admitted to the BSU at [facility]. Plan - Plan Treatment Plan: Name: MARGARET CARROLL Birthdate: 1990 [id number] #Q15 minute observation. # The patient requires psychiatric inpatient admission at this time to assure safety, receive treatment and work toward stabilization. # Obtain collateral information from his parents # Collaboration with Embedded Developer Amber Donato #Depakote level # Increase seroquel to 200mg qhs #Goals before discharge include: Mood stabilization. Tentative Discharge: Pending psychiatric stabilization Vital Signs Temp Pulse Resp BP Pulse Ox 98.4 F 96 18 146/84 100 05/31/19 08:00 05/31/19 08:00 05/31/19 08:00 05/31/19 08:00 05/31/19 08:00 Sodium 139 mmol/L (135-145) 05/30/19 11:10 Potassium 4.0 mmol/L (3.5-5.0) 05/30/19 11:10 BUN 18 mg/dL (6-24) 05/30/19 11:10 Creatinine 1.26 mg/dL (0.67-1.17) H 05/30/19 11:10 Calcium 10.2 mg/dL (8.6-10.3) 05/30/19 11:10 AST 22 U/L (13-39) 05/30/19 11:10 ALT 16 U/L (7-52) 05/30/19 11:10 Continued Medication Management: Continue Outpt Medication Medications: Current Medications Acetaminophen (Tylenol Tab*) 650 mg PO Q4H PRN PRN Reason: PAIN or TEMP > 101 F Al Hydrox/Mg Hydrox/Simethicone (Maalox Plus*) 30 ml PO Q4H PRN PRN Reason: INDIGESTION Divalproex Sodium (Depakote Er Tab(*)) 1,500 mg PO BEDTIME [facility] Last Admin: 05/30/19 22:34 Dose: 1,500 mg Multivitamins (Theragran Tab*) 1 tab PO DAILY [facility] Quetiapine Fumarate (Seroquel Tab*) 100 mg PO BEDTIME [facility] Last Admin: 05/30/19 22:05 Dose: 100 mg - Discharge Plan Discharge Plan: Inpatient Hospitalization Outpatient Program: Counseling/Psych Services at [facility]
[2019-05-31] MEDS: Vitamin THERAPEUTIC TAB PO SCH (11:10)
[2019-05-31] MEDS ORDERED: QUEtiapine TAB* 100 MG PO SCH (21:00)
[2019-05-31] MEDS: Divalproex ER TAB(*) 500 MG PO SCH (23:58)
[2019-06-01 07:38] LABS: HDL Cholesterol 66.7 mg/dL
[2019-06-01] MEDS: Vitamin THERAPEUTIC TAB PO SCH (09:54)
--- NOTE | 2019-06-01 12:31 | PN ---
Subjective - Subjective Date of Service: 06/01/19 Service Type: 35680 Hosp care 35 min high complexity Subjective: Nursing Report: Patient was visible on unit, no behavioral incidents. He is attending group activities. CC: "I went to portal burn" Patient was seen and evaluated. He describes how time doesn't exist. He expressed the ways that he knows who his mentor was referring to when he mentioned he knew someone else who has has bipolar disorder The patient reported he feels safe on the unit and is interacting with peers. He reported having adequate appetite. The patient reports attending and participating in day groups. Per nursing no behavioral issues or overnight events reported. Patient reported that he is tolerating medications without side effects. Objective - General Observations Appearance: Neat Appears Stated Age: Yes Stature: Thin Posture: WNL Eye Contact: Intense Behavior/Activity: Accelerated - Interaction Observations Attitude Towards Examiner: Cooperative Stated Mood: Elevated Affect: Bright Speech Pattern/Tone: Pressured Thought Process: Filght of Ideas Perception: WNL Thought Content: Preoccupation/Ruminations Hallucination Type: None Delusion Type: None - Cognitive Function Orientation: A&O x 4 Level of Consciousness: Awake - Medication Compliance Cooperative with Inpatient Medication Regimen: Yes - Group Participation Participates in Group Activities: Yes Assessment - Assessment Merits Inpatient Hospitalization: For Immediate Safety Clinical Impression: 28 year old male with history of Bipolar 1 disorder came to the hospital with features of juani and was admitted to the BSU at . Plan - Plan Treatment Plan: Name: MARGARET CARROLL Birthdate: 1990 [id number] #Q15 minute observation. # The patient requires psychiatric inpatient admission at this time to assure safety, receive treatment and work toward stabilization. # Obtained collateral information from his Mother [phone], who describe that he is not at his baseline. # Collaboration with Hospital Scientist Amber Donato #Depakote level # Increase seroquel to 400mg qhs #Goals before discharge include: Mood stabilization. Tentative Discharge: Pending psychiatric stabilization Vital Signs Temp Pulse Resp BP Pulse Ox 98.1 F 99 16 140/95 100 06/01/19 08:00 06/01/19 08:00 06/01/19 08:00 06/01/19 08:00 06/01/19 08:00 Sodium 139 mmol/L (135-145) 05/30/19 11:10 Potassium 4.0 mmol/L (3.5-5.0) 05/30/19 11:10 BUN 18 mg/dL (6-24) 05/30/19 11:10 Creatinine 1.26 mg/dL (0.67-1.17) H 05/30/19 11:10 Calcium 10.2 mg/dL (8.6-10.3) 05/30/19 11:10 AST 22 U/L (13-39) 05/30/19 11:10 ALT 16 U/L (7-52) 05/30/19 11:10 Triglycerides 43 mg/dL 06/01/19 07:07 Cholesterol 189 mg/dL 06/01/19 07:07 LDL Cholesterol 114 mg/dL 06/01/19 07:07 Continued Medication Management: Continue Outpt Medication Medications: Current Medications Acetaminophen (Tylenol Tab*) 650 mg PO Q4H PRN PRN Reason: PAIN or TEMP > 101 F Al Hydrox/Mg Hydrox/Simethicone (Maalox Plus*) 30 ml PO Q4H PRN PRN Reason: INDIGESTION Divalproex Sodium (Depakote Er Tab(*)) 1,500 mg PO BEDTIME [facility] Last Admin: 05/31/19 23:58 Dose: 1,500 mg Multivitamins (Theragran Tab*) 1 tab PO DAILY [facility] Last Admin: 05/31/19 11:10 Dose: 1 tab Quetiapine Fumarate (Seroquel Tab*) 400 mg PO BEDTIME [facility] - Discharge Plan Discharge Plan: Inpatient Hospitalization
[2019-06-01] MEDS: QUEtiapine TAB* 100 MG PO SCH (21:58)
[2019-06-01] MEDS: Divalproex ER TAB(*) 500 MG PO SCH (21:59)
[2019-06-02] MEDS: Vitamin THERAPEUTIC TAB PO SCH (09:13)
--- NOTE | 2019-06-02 10:05 | PN ---
Subjective - Subjective Date of Service: 06/02/19 Service Type: 67178 Hosp care 35 min high complexity Subjective: Nursing Report: Patient was visible on unit, He is attending group activities. CC: "I am not a danger" Patient was seen and evaluated. 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 He spoke with his parents last evening. He mentioned that out of all diagnosis that bipolar disorder makes the most sense to describe him. He reported having adequate appetite and slept overnight. The patient reports attending and participating in day groups. Per nursing he became loud last evening and was able to be redirected. Patient reported that he is tolerating medications without side effects. Objective - General Observations Appearance: Neat Appears Stated Age: Yes Stature: Thin Posture: Tense Eye Contact: Intense Behavior/Activity: Accelerated - Interaction Observations Attitude Towards Examiner: Cooperative Stated Mood: Elevated Affect: Bright Speech Pattern/Tone: Pressured Thought Process: Filght of Ideas Perception: WNL Thought Content: Preoccupation/Ruminations Hallucination Type: None Delusion Type: None - Cognitive Function Orientation: A&O x 4 Level of Consciousness: Awake - Medication Compliance Cooperative with Inpatient Medication Regimen: Yes - Group Participation Participates in Group Activities: Yes Assessment - Assessment Merits Inpatient Hospitalization: For Immediate Safety Clinical Impression: 28 year old male with history of Bipolar 1 disorder came to the hospital with features of juani and was admitted to the BSU at [facility]. Plan - Plan Treatment Plan: Name: MARGARET CARROLL Birthdate: 1990 [id number] #Q15 minute observation. # The patient requires psychiatric inpatient admission at this time to assure safety, receive treatment and work toward stabilization. # Obtained collateral information from his Mother [phone], who describe that he is not at his baseline. # Collaboration with Evs Attendant Amber Donato #Depakote level # Continue seroquel to 400mg qhs #Goals before discharge include: Mood stabilization. Tentative Discharge: Pending psychiatric stabilization Sodium 139 mmol/L (135-145) 05/30/19 11:10 Potassium 4.0 mmol/L (3.5-5.0) 05/30/19 11:10 BUN 18 mg/dL (6-24) 05/30/19 11:10 Creatinine 1.26 mg/dL (0.67-1.17) H 05/30/19 11:10 Hemoglobin A1c 5.1 % (4.0-5.6) 06/01/19 07:07 Calcium 10.2 mg/dL (8.6-10.3) 05/30/19 11:10 AST 22 U/L (13-39) 05/30/19 11:10 ALT 16 U/L (7-52) 05/30/19 11:10 Triglycerides 43 mg/dL 06/01/19 07:07 Cholesterol 189 mg/dL 06/01/19 07:07 LDL Cholesterol 114 mg/dL 06/01/19 07:07 Vital Signs Temp Pulse Resp BP Pulse Ox 98.8 F 99 16 134/79 100 06/02/19 08:37 06/02/19 08:37 06/02/19 08:37 06/02/19 08:37 06/02/19 08:37 Continued Medication Management: Continue Outpt Medication Medications: Current Medications Acetaminophen (Tylenol Tab*) 650 mg PO Q4H PRN PRN Reason: PAIN or TEMP > 101 F Al Hydrox/Mg Hydrox/Simethicone (Maalox Plus*) 30 ml PO Q4H PRN PRN Reason: INDIGESTION Divalproex Sodium (Depakote Er Tab(*)) 1,500 mg PO BEDTIME [facility] Last Admin: 06/01/19 21:59 Dose: 1,500 mg Multivitamins (Theragran Tab*) 1 tab PO DAILY [facility] Last Admin: 06/02/19 09:13 Dose: Not Given Quetiapine Fumarate (Seroquel Tab*) 400 mg PO BEDTIME [facility] Last Admin: 06/01/19 21:58 Dose: 400 mg - Discharge Plan Discharge Plan: Inpatient Hospitalization Outpatient Program: Counseling/Psych Services at [facility]
[2019-06-02] MEDS ORDERED: OLANzapine TAB* 5 MG PO PRN (14:05)
[2019-06-02] MEDS: Divalproex ER TAB(*) 500 MG PO SCH (21:52)
[2019-06-02] MEDS: QUEtiapine TAB* 100 MG PO SCH (21:53)
[2019-06-03] MEDS: Vitamin THERAPEUTIC TAB PO SCH (09:28)
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
[2019-06-03] MEDS ORDERED: Lorazepam PYXIS KEY ONE (15:20)
[2019-06-03] MEDS: Divalproex ER TAB(*) 500 MG PO SCH (22:02)
[2019-06-03] MEDS: QUEtiapine TAB* 100 MG PO SCH (22:03)
[2019-06-04] MEDS: Vitamin THERAPEUTIC TAB PO SCH (08:08)
--- NOTE | 2019-06-04 12:02 | PN ---
Subjective - Subjective Date of Service: 06/04/19 Service Type: 72031 Hosp care 35 min high complexity Subjective: Nursing Report: Patient was visible on unit, no behavioral incidents. Slept overnight. He is attending group activities. CC: "Fine Patient was seen and evaluated in the common room. The patient reported he feels safe on the unit and is interacting with peers. He ate breakfast today. He reported wanting to go to [facility] to see his psychiatrist. But was in agreement with seeing a psychiatrist in [place]. He is fixated on finding someone that he can trust to listen to him. He was offered a long acting anti-psychotic and declined. He reported having adequate appetite and sleep. The patient reports attending and participating in day groups. Per nursing no behavioral issues or overnight events reported. Patient reported that he is tolerating medications without side effects. Objective - General Observations Appearance: Neat Appears Stated Age: Yes Stature: Thin Posture: WNL Eye Contact: Intense Behavior/Activity: Accelerated - Interaction Observations Attitude Towards Examiner: Cooperative Stated Mood: Expansive Affect: Full Speech Pattern/Tone: Excessive Thought Process: Coherent Perception: WNL Thought Content: Preoccupation/Ruminations Hallucination Type: None Delusion Type: None - Cognitive Function Orientation: A&O x 4 Level of Consciousness: Awake - Medication Compliance Cooperative with Inpatient Medication Regimen: Yes - Group Participation Participates in Group Activities: Yes Assessment - Assessment Merits Inpatient Hospitalization: For Immediate Safety Clinical Impression: 28 year old male with history of Bipolar 1 disorder came to the hospital with features of juani and was admitted to the BSU at [facility]. Plan - Plan Treatment Plan: Name: MARGARET CARROLL Birthdate: 1990 [id number] #Q30 minute observation with staff pass. Patient shows some improvement of organization of thoughts and less pressured speech # The patient requires psychiatric inpatient admission at this time to assure safety, receive treatment and work toward stabilization. # Obtained collateral information from his Mother [phone] # Collaboration with Commercial Energy Rater Amber Donato #Depakote level 93 # Continue seroquel to 400mg qhs #Goals before discharge include: Mood stabilization. #Allow patient to access his phone to call his roommates Tentative Discharge: Friday Sodium 139 mmol/L (135-145) 05/30/19 11:10 Potassium 4.0 mmol/L (3.5-5.0) 05/30/19 11:10 BUN 18 mg/dL (6-24) 05/30/19 11:10 Creatinine 1.26 mg/dL (0.67-1.17) H 05/30/19 11:10 Hemoglobin A1c 5.1 % (4.0-5.6) 06/01/19 07:07 Calcium 10.2 mg/dL (8.6-10.3) 05/30/19 11:10 AST 22 U/L (13-39) 05/30/19 11:10 ALT 16 U/L (7-52) 05/30/19 11:10 Triglycerides 43 mg/dL 06/01/19 07:07 Cholesterol 189 mg/dL 06/01/19 07:07 LDL Cholesterol 114 mg/dL 06/01/19 07:07 Vital Signs Temp Pulse Resp BP Pulse Ox 97.9 F 80 14 143/87 100 06/03/19 08:00 06/04/19 08:00 06/04/19 08:00 06/04/19 08:00 06/04/19 08:00 Continued Medication Management: Continue Outpt Medication Medications: Current Medications Acetaminophen (Tylenol Tab*) 650 mg PO Q4H PRN PRN Reason: PAIN or TEMP > 101 F Al Hydrox/Mg Hydrox/Simethicone (Maalox Plus*) 30 ml PO Q4H PRN PRN Reason: INDIGESTION Divalproex Sodium (Depakote Er Tab(*)) 1,500 mg PO BEDTIME [facility] Last Admin: 06/03/19 22:02 Dose: 1,500 mg Multivitamins (Theragran Tab*) 1 tab PO DAILY [facility] Last Admin: 06/04/19 08:08 Dose: Not Given Olanzapine (Zyprexa Tab*) 5 mg PO Q6H PRN PRN Reason: AGITATION Quetiapine Fumarate (Seroquel Tab*) 400 mg PO BEDTIME [facility] Last Admin: 06/03/19 22:03 Dose: 400 mg - Discharge Plan Discharge Plan: Inpatient Hospitalization Outpatient Program: Counseling/Psych Services at [place]
[2019-06-04] MEDS: QUEtiapine TAB* 100 MG PO SCH (22:00)
[2019-06-04] MEDS: Divalproex ER TAB(*) 500 MG PO SCH (22:00)
[2019-06-05] MEDS: Vitamin THERAPEUTIC TAB PO SCH (09:55)
[2019-06-05] MEDS: QUEtiapine TAB* 100 MG PO SCH (21:58)
[2019-06-05] MEDS: Divalproex ER TAB(*) 500 MG PO SCH (21:59)
[2019-06-06] MEDS: Vitamin THERAPEUTIC TAB PO SCH (10:00)
[2019-06-06] MEDS: QUEtiapine TAB* 100 MG PO SCH (22:03)
[2019-06-06] MEDS: Divalproex ER TAB(*) 500 MG PO SCH (22:03)
[2019-06-07] MEDS: Vitamin THERAPEUTIC TAB PO SCH (10:22)
--- NOTE | 2019-06-07 12:47 | PN ---
Subjective - Subjective Date of Service: 06/07/19 Service Type: 06180 Hosp care 35 min high complexity Subjective: Nursing Report: Patient was visible on unit, no behavioral incidents. Slept overnight. He is attending group activities. CC: " I plan to take my medications" Patient was seen and evaluated in the common room. The patient reported he feels safe on the unit and is interacting with peers. He reported having adequate appetite and sleep. The patient reports attending and participating in day groups. Per nursing no behavioral issues or overnight events reported. Patient reported that he is tolerating medications without side effects. The patient acknowledged that if he doesnt take his medications that he will end up in the hospital again. He plans to go to [place] for his follow up appointment. Objective - General Observations Appearance: Neat Appears Stated Age: Yes Stature: Thin Posture: WNL Eye Contact: Average Behavior/Activity: WNL - Interaction Observations Attitude Towards Examiner: Cooperative Stated Mood: Dysphoric Affect: Blunted Speech Pattern/Tone: Pressured Thought Process: Coherent Perception: WNL Thought Content: Preoccupation/Ruminations Hallucination Type: None Delusion Type: None - Cognitive Function Orientation: A&O x 4 Level of Consciousness: Awake - Medication Compliance Cooperative with Inpatient Medication Regimen: Yes - Group Participation Participates in Group Activities: Yes Assessment - Assessment Merits Inpatient Hospitalization: For Immediate Safety, For Stabilization Clinical Impression: 28 year old male with history of Bipolar 1 disorder came to the hospital with features of juani and was admitted to the BSU at [facility]. Plan - Plan Treatment Plan: Name: MARGARET CARROLL Birthdate: 1990 [id number] #Q30 minute observation with staff pass. Patient shows some improvement of organization of thoughts and less pressured speech # The patient requires psychiatric inpatient admission at this time to assure safety, receive treatment and work toward stabilization. # Obtained collateral information from his Mother [phone]. She is in agreement with discharge tomorrow. Patient acknowledges that if compliance becomes a issue that a long acting injection will be necessary. # Collaboration with Fiber Product Cutting Machine Operator Amber Donato #Depakote level 93 # Continue seroquel 400mg qhs #Goals before discharge include: Mood stabilization. #Patient will return to live with roommates at [place] Tentative Discharge: Friday. Sodium 139 mmol/L (135-145) 05/30/19 11:10 Potassium 4.0 mmol/L (3.5-5.0) 05/30/19 11:10 BUN 18 mg/dL (6-24) 05/30/19 11:10 Creatinine 1.26 mg/dL (0.67-1.17) H 05/30/19 11:10 Hemoglobin A1c 5.1 % (4.0-5.6) 06/01/19 07:07 Calcium 10.2 mg/dL (8.6-10.3) 05/30/19 11:10 AST 22 U/L (13-39) 05/30/19 11:10 ALT 16 U/L (7-52) 05/30/19 11:10 Triglycerides 43 mg/dL 06/01/19 07:07 Cholesterol 189 mg/dL 06/01/19 07:07 LDL Cholesterol 114 mg/dL 06/01/19 07:07 Vital Signs Temp Pulse Resp BP Pulse Ox 98.1 F 96 16 127/84 100 06/07/19 08:00 06/07/19 08:00 06/07/19 13:00 06/07/19 08:00 06/07/19 08:00 Continued Medication Management: Continue Outpt Medication Medications: Current Medications Acetaminophen (Tylenol Tab*) 650 mg PO Q4H PRN PRN Reason: PAIN or TEMP > 101 F Al Hydrox/Mg Hydrox/Simethicone (Maalox Plus*) 30 ml PO Q4H PRN PRN Reason: INDIGESTION Divalproex Sodium (Depakote Er Tab(*)) 1,500 mg PO BEDTIME [facility] Last Admin: 06/06/19 22:03 Dose: 1,500 mg Multivitamins (Theragran Tab*) 1 tab PO DAILY [place] Last Admin: 06/07/19 10:22 Dose: 1 tab Olanzapine (Zyprexa Tab*) 5 mg PO Q6H PRN PRN Reason: AGITATION Quetiapine Fumarate (Seroquel Tab*) 400 mg PO BEDTIME [facility] Last Admin: 06/06/19 22:03 Dose: 400 mg - Discharge Plan Discharge Plan: Inpatient Hospitalization Outpatient Program: Counseling/Psych Services at [place]
[2019-06-07] MEDS: QUEtiapine TAB* 100 MG PO SCH (21:46)
[2019-06-07] MEDS: Divalproex ER TAB(*) 500 MG PO SCH (21:47)
[2019-06-08 08:15] VITALS: BP 138/79
[2019-06-08] MEDS: Vitamin THERAPEUTIC TAB PO SCH (09:54)
--- NOTE | 2019-06-08 10:01 | DS ---
Subjective - Subjective Service Types: [address] [facility] Day Mgmt complex over 30 min Discharge Date: 06/08/19 Subjective: CC: " I am fine to go home " Patient looks forward to The patient was seen and evaluated before discharge today. The patient reported having adequate appetite and sleep. The patient reports attending and participating in day groups. Per nursing no behavioral issues or overnight events reported. Patient reported tolerating medications without side effects. HERNESTO James Sheridan is a 28-year-old single polyamorous man Chief complaint The police were called on me twice on Sat. 2018 because "people were worried I was a danger to either myself or others." KEVIN Ramirez reports a history of juani and bipolar disorder. Recalls juani with psychosis leading to previous admission here last September, including belief he was God. He reports recently having taken LSD and attending [employer] in [place], [place]. This was followed by sending emails speculating about his intelligence, whether or not he may be schizophrenic, and rebellious commentaries on social psychology. Denies any voices, visions, paranoia or delusions. Mood reported as Im comfortable with my mood. Denies grandiosity but feels good about himself. Denies any intent or plan to harm himself or others in any way. Sleep has been a little irregular since LSD + [employer] a week ago. Reports people in his life are worried about him. Denies low mood and shows no signs of it, and does not see himself as euphoric or irritable, though he is bubbly. Denies ever binging, purging or restricting. Denies any history of trauma. Past psychiatric history - Single admission in September 2018 for manic episode . Currently in care with psychiatrist Dr Du in [facility], and seeing therapist Arash Juan at [facility]. Medications- Acetaminophen (Tylenol Tab*) 650 mg PO Q4H PRN PRN Reason: PAIN or TEMP > 101 F Al Hydrox/Mg Hydrox/Simethicone (Maalox Plus*) 30 ml PO Q4H PRN PRN Reason: INDIGESTION Divalproex Sodium (Depakote Er Tab(*)) 1,500 mg PO BEDTIME [facility] Multivitamins (Theragran Tab*) 1 tab PO DAILY [facility] Quetiapine Fumarate (Seroquel Tab*) 100 mg PO BEDTIME [facility] 2 Allergies Allergy/AdvReac Type Severity Reaction Status Date / Time No Known Allergies Allergy Verified 05/30/19 00:46 PE and BRISSA Ramirez declines a repeat PE. He reports having no current physical symptoms. Vital Signs (72 hours) 05/30/19 05/30/19 05/30/19 00:11 09:00 12:08 Temperature 100.3 F 98 F 98.5 F Pulse Rate 99 88 92 Respiratory 18 16 18 Rate Blood Pressure 157/105 141/88 132/83 (mmHg) O2 Sat by Pulse 98 100 98 Oximetry 05/30/19 05/30/19 05/30/19 12:29 12:48 13:39 Temperature 98.6 F 98.6 F Pulse Rate 95 95 Respiratory 16 16 18 Rate Blood Pressure 133/91 133/91 (mmHg) O2 Sat by Pulse 97 97 Oximetry Substance abuse history Denies any abuse of alcohol, marijuana, cocaine, heroin or pain pills, methamphetamine, tobacco. Has taken LSD twice. Past medical history Knee surgery years ago. PCP [facility] Family psychiatric history Has heard of a suicide in extended family, and one distantly related family member with either schizophrenia or bipolar disorder. Social history - Born in [place], [place]. No developmental delays or complications. Moved around a lot when in elementary school, then settled down in middle school. Only unpleasant memory is patients shouting at each other. 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 Parents and friends are most important people in his life. Identifies as heterosexual. Mental Status Examination - Good grooming/hygiene. Motor and speech pattern WNL with high energy. Mood relieved, calm. Affect bubbly. Denies AH/VH/PI/SI /HI. Good insight and judgment now, poor leading up to admission. Intact impulse control now. Impression Mr Sheridan has been admitted for safety, assessment and treatment after concerns raised by emails sent out indicative of a thought process that could lead to further escalation into a dangerous manic state. His father had stated that he had threatened to kill him, adding concerns for safety of others in our initial assessment leading to the determination that James required admission. James reports the only thing he had said to his father was to get out of his house and did not threaten his father in any way. James may have had a persistent change of mental status due to LSD and the stimulation of [employer] contributing to his recurrence of juani. 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 He would also like to attend a conference in [place] to which he has an airline ticket to fly to on Friday. Diagnoses - Bipolar disorder, type 1, MRE manic. ADHD, predominantly inattentive type. Diagnosis on Discharge: Bipolar I disorder, recent manic episode, currently in partial remission. Attention deficit /hyperactivity disorder, predominantly inattentive type, by history. Condition at the time of discharge: At the time of discharge patient showed improvement of sleep and appetite. The patient was not a danger to self or others. The patient denied suicidal ideation, intent or plan. The patient denied homicidal targets, ideation, intent or plan. This patient participated in psychosocial rehabilitation and gained some insight into problems. The patient gained insight into mental illness, triggers, and treatment. The patient took medication as prescribed. The patient denied side effects of medication and objective signs of side effects were not evident. Therapy Resources were offered to the patient. Patient was given a supply of prescriptions at the time of discharge. The patient plans to attend follow up care with the follow up arrangements that were discussed and put in place. Patient was asked to keep appointments as scheduled, take medication as prescribed, have routine follow up care with their primary care physician and refrain from any use of alcohol or drugs. Objective - General Observations Appearance: Neat Appears Stated Age: Yes Stature: Thin Posture: WNL Eye Contact: Average Behavior/Activity: WNL - Interaction Observations Attitude Towards Examiner: Cooperative Stated Mood: Euthymic Affect: Full Speech Pattern/Tone: Clear Thought Process: Coherent Perception: WNL Thought Content: WNL Hallucination Type: None Delusion Type: None - Cognitive Function Orientation: A&O x 4 Level of Consciousness: Awake - Medication Compliance Cooperative with Inpatient Medication Regimen: Yes - Group Participation Participates in Group Activities: Yes Treatment Course & Assessment Clinical Course & Impression: Hospital course part A: 28 year old male with history of Bipolar 1 disorder came to the hospital with features of juani and was admitted to the B[facility] at [facility]. Hospital course part B: Labs ordered included CBC, CMP, UDS, TSH, HBA1c, TSH, VA level, Toxicology screen, Urine analysis, and lipid profile. Labs were reviewed and did not require the need for further evaluation. Vital signs were monitored during the course of admission. The patient was admitted to the adult behavioral unit and placed on 15 minute check for safety. At a later time the patient was on Q30 minute observation and staff pass privileges. With those limits being extended, patient was safe on all checks and there were no occurrence of behavioral incidents. The patient did well on the unit and went to groups. Interacted with peers had adequate sleep and regular appetite. Tolerated medication changes without side effects. Group therapy and services were offered. The risks, benefits, and alternative treatment options were discussed as well as of the risks of refusing treatment. Treatment associated risks discussed. After this discussion made an acknowledgement of this understanding. Follow up care appointments were put in place for follow up care. The importance of monitoring for metabolic changes was discussed and acknowledgement of this understanding was made. Patient informed not to abruptly stop or start new medications before consulting with a medical professional. Improvements in patient from the time of admission include: Improved affect, sleep and decrease in anxiety.The patient expressed readiness for discharge home. The patient presents with a broader range of affect, and the absence of depressed mood, delusions, perceptual disturbances. The patient denied suicidal and or homicidal ideation intent or plan. Overall, the patient responded well to inpatient treatment as evidenced by their report of strengthening of coping mechanisms, reduced distress, and more positive outlook on circumstances. Of note there was an improvement of recognizing how emotional state can effect mood and behavior. The patient showed stabilization of mood by improvement of organization of thoughts and his speech and was no longer pressured. He was able to be redirected and his thought process was goal directed and less tangential since admission. Safety precautions were put in place which included involving the patient and their family to closely monitor for changes in mental state. In addition, implementing follow up care, screening for the need to remove/securing firearms , weapons and stockpile of medications. Patient/ family instructed to immediately call 911 should any safety concerns arise. AIMS was performed and insignificant for involuntary movement disorders. Metabolic changes were not observed since starting treatment. Continuation of this will be monitored in the outpatient setting. The patient was advised of the 24 hour / 7 days a week availability of the emergency room and to call 911 in the event of an emergency such as being suicidal and/ or homicidal. The patient was informed of the contact information for [facility], [facility] Prevention [facility] Crisis [facility], National Suicide Prevention Lifeline, [facility], Alcoholics Anonymous, and [facility]. Valproic acid level was 93 and within normal limits. They tolerated medications and were advised about the importance of monitoring medication levels after leaving the hospital. Medications started included seroquel 400mg at bedtime for psychosis and depakote 1500mg at bedtime for mood stabilization. Family was contacted throughout the hospital course, and before discharge. The family confirmed that the patient is at their baseline. At this time both the patient and family are eager for discharge and are in agreement with the discharge plan set forth by the treatment team and can safely receive care in the less restrictive outpatient setting. They were advised on how the days following discharge can be a vulnerable period and to look out for warning signs associated with decompensation and progression of mental illness. They were notified of the resources available in the event these situations arise and confirmed that the patient has no access to firearms or stock piles of medications. Patient was not assaultive or a behavioral problem during the course of admission. The patient showed improvement of hygiene and was able to carry out activities of daily living. Patient will be discharged to his apartment. [facility] at [facility]. Coordination of care and monitoring of compliance to medications was emphasized to outpatient provider and suggestion of long acting anti-psychotic in the event that compliance becomes a issue. Patient informed of follow up appointment times. See more details for follow up care in the discharge plan. Risk factors were mitigated by establishing the patients baseline with close contacts and arranging family involvement. Implementing precautionary safety measures by confirming no stockpiles of medications and no access to firearms , providing mental health treatment, offering substance abuse resources, stabilization of juani , provided resources to access to a variety of clinical interventions and support for seeking help and arrangement of outpatient continuation of care, as well as provided a supportive care environment and therapy resources during the course of hospitalization. Risk factors: , single, affective mental health disorder. Recent hospitalization and LSD use. Protective factors: Currently no suicidal ideation, intent or plan. No prior suicide attempts. Has social/ family support system. No history of service. Currently no feelings of hopelessness, not in an occupation of social isolation, doesnt have multiple medical conditions, no direct family history of suicide, doesnt have access to firearms. Doesnt have command hallucinations and or psychotic features at this time. No current alcohol abuse. Not an anniversary of a loss of a loved one. No changes in relationship status, housing, job, or school. Currently future orientated. Patient engaged in treatment and compliant with medication during the course of hospitalization. Sense of efficacy, meaning, purpose, or responsibility. No prior history of incarceration Sodium 139 mmol/L (135-145) 05/30/19 11:10 Potassium 4.0 mmol/L (3.5-5.0) 05/30/19 11:10 BUN 18 mg/dL (6-24) 05/30/19 11:10 Creatinine 1.26 mg/dL (0.67-1.17) H 05/30/19 11:10 Hemoglobin A1c 5.1 % (4.0-5.6) 06/01/19 07:07 Calcium 10.2 mg/dL (8.6-10.3) 05/30/19 11:10 AST 22 U/L (13-39) 05/30/19 11:10 ALT 16 U/L (7-52) 05/30/19 11:10 Triglycerides 43 mg/dL 06/01/19 07:07 Cholesterol 189 mg/dL 06/01/19 07:07 LDL Cholesterol 114 mg/dL 06/01/19 07:07 Vital Signs Temp Pulse Resp BP Pulse Ox 98.4 F 82 16 138/79 100 06/08/19 08:00 06/08/19 08:00 06/08/19 08:00 06/08/19 08:00 06/08/19 08:00 Merits Inpatient Hospitalization: No Clear for Discharge: Adequate Clinical Respons Discharge Planning - Discharge Planning Discharge Plan: Outpatient Follow Up Outpatient Program: Counseling/Psych Services at [facility] Recommendations for Continuing Care: Medication Management Medications: Current Medications Acetaminophen (Tylenol Tab*) 650 mg PO Q4H PRN PRN Reason: PAIN or TEMP > 101 F Al Hydrox/Mg Hydrox/Simethicone (Maalox Plus*) 30 ml PO Q4H PRN PRN Reason: INDIGESTION Divalproex Sodium (Depakote Er Tab(*)) 1,500 mg PO BEDTIME [facility] Last Admin: 06/07/19 21:47 Dose: 1,500 mg Multivitamins (Theragran Tab*) 1 tab PO DAILY [facility] Last Admin: 06/08/19 09:54 Dose: 1 tab Olanzapine (Zyprexa Tab*) 5 mg PO Q6H PRN PRN Reason: AGITATION Quetiapine Fumarate (Seroquel Tab*) 400 mg PO BEDTIME [facility] Last Admin: 06/07/19 21:46 Dose: 400 mg Discharge Planning: Prescriptions provided for discharge [x] Yes [] No Follow up care details as per social work arrangements. Patient response to discharge plan: [x] eager for discharge [] agreeable with discharge plan [] ambivalent about discharge [] disagrees with discharge today
== END 2019-06-08 14:49 | disposition home or self-care (01) | DRG 885 ==
LOC: ED 00:04 → BSU 11:54
PROVIDERS: ADMIT Psychiatry & Neurology Psychiatry; ATTEND Psychiatry & Neurology Psychiatry
DX: F31.10 Bipolar disorder, current episode manic without psychotic features, unspecified (principal); F90.0 Attention-deficit hyperactivity disorder, predominantly inattentive type; Z81.8 Family history of other mental and behavioral disorders
CPT/HCPCS: 36415; 80053; 80061; 80164; 80320; 80329; 83036; 84443; 85025; 99222; 99233; 99238; 99283; A9270-GY; G0480